=== PATIENT | female | born 1980 | race American Indian/Alaskan Native ===

== ENCOUNTER 2019-11-04 13:27 | Emergency (ER) | payer SELFPAY ==
--- NOTE | 2019-11-04 13:45 | Event Note ---
ED Screening Note Date of service: 11/04/19 Time: 13:39 ED Screening Note: This is a 39 y.o. F. that presents to the ER with burning sensation in her throat since yesterday. States son was sick last week with similar symptoms. This initial assessment/diagnostic orders/clinical plan/treatment(s) is/are subject to change based on patients health status, clinical progression and re- assessment by fellow clinical providers in the ED. Further treatment and workup at subsequent clinical providers discretion. Patient/guardian urged not to elope from the ED as their condition may be serious if not clinically assessed and managed. Initial orders include: Rapid strep
[2019-11-04] MEDS ORDERED: IBUPROFEN 800 MG TAB PO ONE (16:31)
[2019-11-04] MEDS ORDERED: LIDOCAINE VISCOUS 2% 15 ML ORAL LIQD MM ONE (16:32)
--- NOTE | 2019-11-04 17:07 | XRay Report ---
SOFT TISSUE NECK, 2 VIEWS INDICATION / CLINICAL INFORMATION: pain with swollowing. COMPARISON: None available. FINDINGS: Airway has an unremarkable appearance. A normal epiglottis is visualized. No abnormal airway distenti on. No soft tissue abnormality. Visualized lung apices are unremarkable. IMPRESSION: Negative soft tissue neck radiographs. Signer Name: Angélica Ryder MD Signed: 11/04/2019 5:03 PM Workstation Name: [id number]
--- NOTE | 2019-11-04 18:33 | Emergency Department Report ---
ED ENT HPI - General Chief complaint: Sore Throat Stated complaint: UNABLE TO SWALLOW Time Seen by Provider: 11/04/19 13:39 Source: patient Mode of arrival: Ambulatory Limitations: No Limitations - History of Present Illness Initial comments: This is a 39-year-old female nontoxic, well nourished in appearance, no acute signs of distress presents to the ED with c/o of sore throat and difficulty swallowing. Stated feels like something is stuck. Patient describes sore throat as swallowing razer blades. Patient denies any fever, chills, headache, stiff neck, nausea, vomiting, chest pain, shortness of breath, numbness or tingling. Patient denies any drooling or hoarseness. Patient stated allergies to Zofran. Denies significant past medical history. MD complaint: sore throat -: days(s) Location: throat Severity: mild Severity scale (0 -10): 8 Quality: aching Consistency: constant Improves with: none Worsens with: swallowing Associated Symptoms: pain with swallowing, sore throat. denies: fever, cough, gum swelling, toothache, tinnitus, hearing loss, discharge from ear, rhinorrhea - Related Data Previous Rx's Medication Instructions Recorded Last Taken Type Ondansetron [Zofran] 4 mg PO Q6HR PRN #20 tablet 12/19/14 Unknown Rx Pnv95/Ferrous Fumarate/FA 1 each PO QDAY #90 tablet 12/19/14 Unknown Rx [ Vitamins] metroNIDAZOLE 0.75%(NF) [Metrogel 1 applicatio TP BID #10 tube 12/19/14 Unknown Rx 0.75%] Acetaminophen/Codeine 1 tab PO Q6H PRN #10 tab 12/23/14 Unknown Rx [Acetaminophen-Codeine #3 TAB] Acetaminophen with Codeine 1 each PO Q6HR PRN #20 tablet 06/27/15 Unknown Rx [Acetaminophen-Codeine #2 TAB] Diphenhydramine HCl [Benadryl 25 mg PO QPM #30 tablet 06/27/15 Unknown Rx Allergy TAB] HYDROcodone/APAP 5-325 [[place] 1 each PO Q6HR PRN #20 tablet 04/08/16 Unknown Rx 5/325] Nitrofurantoin [place]/M-Cryst 100 mg PO Q12HR #14 capsule 04/08/16 Unknown Rx [Macrobid CAP] Promethazine [Phenergan] 25 mg PO Q6HR PRN #20 tab 04/08/16 Unknown Rx Amoxicillin [Amoxicillin TAB] 875 mg PO BID #20 tablet 11/04/19 Unknown Rx Ibuprofen [Motrin] 600 mg PO Q8H PRN #20 tablet 11/04/19 Unknown Rx Nystas/Diphen/Xyl Visc/Mylanta 15 ml MM Q6H PRN 5 Days ml 11/04/19 Unknown Rx [Magic Mouthwash] Allergies Allergy/AdvReac Type Severity Reaction Status Date / Time ondansetron HCl AdvReac Headache Verified 11/04/19 13:28 [From Zofran (as hydrochloride)] ED Dental HPI - General Chief complaint: Sore Throat Stated complaint: UNABLE TO SWALLOW Time Seen by Provider: 11/04/19 13:39 Source: patient Mode of arrival: Ambulatory Limitations: No Limitations - Related Data Previous Rx's Medication Instructions Recorded Last Taken Type Ondansetron [Zofran] 4 mg PO Q6HR PRN #20 tablet 12/19/14 Unknown Rx Pnv95/Ferrous Fumarate/FA 1 each PO QDAY #90 tablet 12/19/14 Unknown Rx [ Vitamins] metroNIDAZOLE 0.75%(NF) [Metrogel 1 applicatio TP BID #10 tube 12/19/14 Unknown Rx 0.75%] Acetaminophen/Codeine 1 tab PO Q6H PRN #10 tab 12/23/14 Unknown Rx [Acetaminophen-Codeine #3 TAB] Acetaminophen with Codeine 1 each PO Q6HR PRN #20 tablet 06/27/15 Unknown Rx [Acetaminophen-Codeine #2 TAB] Diphenhydramine HCl [Benadryl 25 mg PO QPM #30 tablet 06/27/15 Unknown Rx Allergy TAB] HYDROcodone/APAP 5-325 [[place] 1 each PO Q6HR PRN #20 tablet 04/08/16 Unknown Rx 5/325] Nitrofurantoin [place]/M-Cryst 100 mg PO Q12HR #14 capsule 04/08/16 Unknown Rx [Macrobid CAP] Promethazine [Phenergan] 25 mg PO Q6HR PRN #20 tab 04/08/16 Unknown Rx Amoxicillin [Amoxicillin TAB] 875 mg PO BID #20 tablet 11/04/19 Unknown Rx Ibuprofen [Motrin] 600 mg PO Q8H PRN #20 tablet 11/04/19 Unknown Rx Nystas/Diphen/Xyl Visc/Mylanta 15 ml MM Q6H PRN 5 Days ml 11/04/19 Unknown Rx [Magic Mouthwash] Allergies Allergy/AdvReac Type Severity Reaction Status Date / Time ondansetron HCl AdvReac Headache Verified 11/04/19 13:28 [From Zofran (as hydrochloride)] ED Review of Systems ROS: Stated complaint: UNABLE TO SWALLOW Other details as noted in HPI Constitutional: denies: chills, fever Eyes: denies: eye pain, eye discharge, vision change ENT: throat pain. denies: ear pain Respiratory: denies: cough, shortness of breath, wheezing Cardiovascular: denies: chest pain, palpitations Endocrine: no symptoms reported Gastrointestinal: denies: abdominal pain, nausea, diarrhea Genitourinary: denies: urgency, dysuria, discharge Musculoskeletal: denies: back pain, joint swelling, arthralgia Skin: denies: rash, lesions Neurological: denies: headache, weakness, paresthesias Psychiatric: denies: anxiety, depression Hematological/Lymphatic: denies: easy bleeding, easy bruising ED Past Medical Hx - Past Medical History Previous Medical History?: No Additional medical history: kidney infection - Surgical History Past Surgical History?: Yes Hx Appendectomy: Yes - Social History Smoking Status: Never Smoker Substance Use Type: None - Medications Home Medications: Home Medications Medication Instructions Recorded Confirmed Last Taken Type Ondansetron [Zofran] 4 mg PO Q6HR PRN #20 tablet 12/19/14 Unknown Rx Pnv95/Ferrous Fumarate/FA 1 each PO QDAY #90 tablet 12/19/14 Unknown Rx [ Vitamins] metroNIDAZOLE 0.75%(NF) [Metrogel 1 applicatio TP BID #10 tube 12/19/14 Unknown Rx 0.75%] Acetaminophen/Codeine 1 tab PO Q6H PRN #10 tab 12/23/14 Unknown Rx [Acetaminophen-Codeine #3 TAB] Acetaminophen with Codeine 1 each PO Q6HR PRN #20 tablet 06/27/15 Unknown Rx [Acetaminophen-Codeine #2 TAB] Diphenhydramine HCl [Benadryl 25 mg PO QPM #30 tablet 06/27/15 Unknown Rx Allergy TAB] HYDROcodone/APAP 5-325 [[place] 1 each PO Q6HR PRN #20 tablet 04/08/16 Unknown Rx 5/325] Nitrofurantoin [place]/M-Cryst 100 mg PO Q12HR #14 capsule 04/08/16 Unknown Rx [Macrobid CAP] Promethazine [Phenergan] 25 mg PO Q6HR PRN #20 tab 04/08/16 Unknown Rx Amoxicillin [Amoxicillin TAB] 875 mg PO BID #20 tablet 11/04/19 Unknown Rx Ibuprofen [Motrin] 600 mg PO Q8H PRN #20 tablet 11/04/19 Unknown Rx Nystas/Diphen/Xyl Visc/Mylanta 15 ml MM Q6H PRN 5 Days ml 11/04/19 Unknown Rx [Magic Mouthwash] ED Physical Exam - General Limitations: No Limitations General appearance: alert, in no apparent distress - Head Head exam: Present: atraumatic, normocephalic - Expanded ENT Exam Expanded Ear exam: Present: normal external inspection Mouth exam: Present: normal external inspection. Absent: drooling, trismus, m uffled voice Teeth exam: Present: normal inspection Throat exam: Positive: tonsillar erythema, other (uvula midline. no swelling. no abscess. no foriegn body noted). Negative: tonsillomegaly, tonsillar exudate, R peritonsillar mass, L peritonsillar mass - Neck Neck exam: Present: normal inspection, full ROM. Absent: tenderness, meningismus, lymphadenopathy - Extremities Exam Extremities exam: Present: full ROM - Back Exam Back exam: Present: full ROM - Neurological Exam Neurological exam: Present: alert, oriented X3, normal gait - Psychiatric Psychiatric exam: Present: normal affect, normal mood - Skin Skin exam: Present: warm, dry, intact, normal color. Absent: rash ED Course Vital Signs 11/04/19 13:44 Temperature 98.1 F Pulse Rate 102 H Respiratory 18 Rate Blood Pressure 119/73 O2 Sat by Pulse 98 Oximetry - Reevaluation(s) Reevaluation #1: 11/04/19 18:33 Patient is speaking in full sentences with no signs of distress noted. ED Medical Decision Making - Medical Decision Making This is a 39-year-old female that presents with pharyngitis. Patient is stable was examined by me. There is no drooling. No tonsillar abscess noted. Uvula is midline. X-ray has been obtained to rule out foreign body and was negative and dictated by radiologist. Patient is notified of the results with the no questions noted by the patient. Vital signs are stable. Patient is not febrile and normal heart rate. Patient was instructed to Follow-up with a primary care doctor in 3-5 days or if symptoms worsen and continue return to emergency room as soon as possible. At time of discharge, the patient does not seem toxic or ill in appearance. No acute signs of distress noted. Patient agrees to discharge treatment plan of care. No further questions noted by the patient. - Differential Diagnosis foreign body, pharyngitis, strep Critical care attestation.: If time is entered above; I have spent that time in minutes in the direct care of this critically ill patient, excluding procedure time. ED Disposition Clinical Impression: Pharyngitis Qualifiers: Pharyngitis/tonsillitis etiology: unspecified etiology Qualified Code(s): J02.9 - Acute pharyngitis, unspecified Disposition: DC- TO HOME OR SELFCARE Is pt being admited?: No Does the pt Need Aspirin: No Condition: Stable Instructions: Pharyngitis (ED) Additional Instructions: Follow-up with a primary care doctor in 3-5 days or if symptoms worsen and continue return to emergency room as soon as possible. Prescriptions: Amoxicillin [Amoxicillin TAB] 875 mg PO BID #20 tablet Nystas/Diphen/Xyl Visc/Mylanta [Magic Mouthwash] 15 ml MM Q6H PRN 5 Days ml PRN Reason: Sore Throat Ibuprofen [Motrin] 600 mg PO Q8H PRN #20 tablet PRN Reason: Pain Referrals: PRIMARY MD KEELEY [Primary Care Provider] - 3-5 Days JONH COVINGTON MD [Staff Physician] - 3-5 Days [facility] [Outside] - 3-5 Days Forms: Work/School Release Form(ED)
[2019-11-04 18:45] VITALS: BP 131/71
== END 2019-11-04 18:45 | disposition home or self-care (01) ==
LOC: ED 13:27
DX: J02.9 Acute pharyngitis, unspecified (principal); Z88.1 Allergy status to other antibiotic agents; Z79.899 Other long term (current) drug therapy
CPT/HCPCS: 70360; 87116; 87430